=== PATIENT | male | born 2000 | race Caucasian/White ===

== ENCOUNTER → 2018-02-05 | Emergency (ER) | payer OTHER ==
[~2018-02-05] VITALS: Ht 185.4 cm; Wt 70.3 kg
[~2018-02-05] MED LIST: ACETAMINOPHEN 500 MG TAB (TYLENOL) PO ONE; AMOX-358 PO; AUGMENTIN 875 MG TAB (AMOXICILLIN/CLAVULANATE) PO SCH; IBUPROFEN 800 MG (MOTRIN) TAB PO ONE
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
[2018-02-06 00:18] VITALS: BP 123/76
== END | disposition home or self-care (01) ==
LOC: ER 22:16
DX: J02.9 Acute pharyngitis, unspecified (principal)
CPT/HCPCS: 87430; 87804

== ENCOUNTER 2018-07-17 17:59 | Emergency (ER) | payer OTHER ==
[~2018-07-17] VITALS: Ht 182.9 cm; Wt 70.3 kg
[~2018-07-17 17:59] MED LIST changes: -ACETAMINOPHEN 500 MG TAB (TYLENOL) PO ONE; -AUGMENTIN 875 MG TAB (AMOXICILLIN/CLAVULANATE) PO SCH; -IBUPROFEN 800 MG (MOTRIN) TAB PO ONE
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
[2018-07-17 18:30] VITALS: BP 120/66
== END 2018-07-17 18:38 | disposition home or self-care (01) ==
LOC: EDUNIT# 17:59 → ER 18:00
DX: S09.92XA Unspecified injury of nose, initial encounter (principal); S69.91XA Unspecified injury of right wrist, hand and finger(s), initial encounter; S69.92XA Unspecified injury of left wrist, hand and finger(s), initial encounter; R40.2142 Coma scale, eyes open, spontaneous, at arrival to emergency department; R40.2252 Coma scale, best verbal response, oriented, at arrival to emergency department; R40.2362 Coma scale, best motor response, obeys commands, at arrival to emergency department; Z77.22 Contact with and (suspected) exposure to environmental tobacco smoke (acute) (chronic); V49.40XA Driver injured in collision with unspecified motor vehicles in traffic accident, initial encounter
CPT/HCPCS: 99282

== ENCOUNTER 2021-05-08 00:57 | Emergency (ER) | payer OTHER ==
[~2021-05-08] VITALS: Ht 182.9 cm; Wt 90.7 kg
[2021-05-08 01:25] VITALS: BP 140/98
[2021-05-08] MEDS ORDERED: LACTATED RINGERS 1,000 ML IV ONE ×2 (02:15→03:00)
[2021-05-08] MEDS ORDERED: ONDANSETRON 4 MG/2 ML (SDV) Z0FRAN IVP ONE (02:15)
[2021-05-08] MEDS ORDERED: FAMOTIDINE 20MG/2ML IV (PEPCID) IVP ONE (02:15)
[2021-05-08 02:22] LABS: BASOPHILS # (AUTO) 0.1 10^3/uL (0.0-0.1); BASOPHILS % (AUTO) 0 % (0-10); EOSINOPHILS # (AUTO) 0.1 10^3/uL (0.0-0.3); EOSINOPHILS % (AUTO) 1 % (0-10); HEMATOCRIT 50 % (40-54); HEMOGLOBIN 16.8 g/dL (13.3-17.7); LYMPHOCYTES # (AUTO) 0.9 10^3/uL (1.0-4.0); LYMPHOCYTES % (AUTO) 5 % (12-44); MEAN CORPUSCULAR HEMOGLOBIN 28 pg (25-34); MEAN CORPUSCULAR HGB CONC 34 g/dL (32-36); MEAN CORPUSCULAR VOLUME 84 fL (80-99); MEAN PLATELET VOLUME 10.6 fL (9.0-12.2); MONOCYTES % (AUTO) 6 % (0-12); NEUTROPHILS # (AUTO) 15.9 10^3/uL (1.8-7.8); NEUTROPHILS % (AUTO) 89 % (42-75); PLATELET COUNT 292 10^3/uL (130-400); WHITE BLOOD COUNT 17.9 10^3/uL (4.3-11.0)
[2021-05-08 02:32] LABS: BILIRUBIN,URINE NEGATIVE (NEGATIVE); CLARITY,URINE CLEAR; COLOR,URINE YELLOW; GLUCOSE, URINE (UA) NEGATIVE (NEGATIVE); KETONES,URINE NEGATIVE (NEGATIVE); LEUKOCYTE ESTERASE ,URINE NEGATIVE (NEGATIVE); NITRITE,URINE NEGATIVE (NEGATIVE); PROTEIN,URINE NEGATIVE (NEGATIVE)
[2021-05-08 02:34] LABS: ALBUMIN 4.6 GM/DL (3.2-4.5); CHLORIDE 103 MMOL/L (98-107); POTASSIUM 4.1 MMOL/L (3.6-5.0); SODIUM 140 MMOL/L (135-145)
[2021-05-08 02:35] LABS: CALCIUM 9.6 MG/DL (8.5-10.1)
[2021-05-08 02:36] LABS: GLUCOSE 131 MG/DL (70-105)
[2021-05-08 02:37] LABS: TOTAL PROTEIN 8.3 GM/DL (6.4-8.2)
[2021-05-08 02:38] LABS: BILIRUBIN,TOTAL 1.1 MG/DL (0.1-1.0); CARBON DIOXIDE 23 MMOL/L (21-32)
[2021-05-08 02:40] LABS: ALKALINE PHOSPHATASE 103 U/L (40-136); CREATININE SERUM 0.99 MG/DL (0.60-1.30); GFR ESTIMATED 110
[2021-05-08 02:41] LABS: BUN/CREATININE RATIO 12
[2021-05-08 02:43] LABS: ALANINE AMINOTRANSFERASE 31 U/L (0-55); LIPASE 11 U/L (8-78)
[2021-05-08 02:54] LABS: BACTERIA,URINE NEGATIVE /HPF; SQUAMOUS EPITHELIAL CELL,UR 0-2 /HPF
[2021-05-08] MEDS ORDERED: ONDA4TAB11 SL (03:03)
--- NOTE | 2021-05-08 03:03 | ED General ---
General Chief Complaint: Abdominal/GI Problems Stated Complaint: ABD PAIN,VOMITING,FEVER,COUGH Nursing Triage Note: Pt arrives via POV from home for c/o vomiting; onset one day. 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 Pt states when he has the vomiting episodes he has centralized ABD pain. Pt denies changes in bowel or bladder. Source of Information: Patient Exam Limitations: No Limitations History of Present Illness Date Seen by Provider: May 08, 2021 Time Seen by Provider: 01:07 Allergies and Home Medications Allergies Coded Allergies: No Known Drug Allergies (Unverified , 02/05/18) Patient Home Medication List Amoxicillin/Potassium Clav (Augmentin 875-125 Tablet) 1 Each Tablet, 1 EACH PO BID Prescribed by: KENN HOBBS on 02/05/18 [id number] Past Yqvddze-Hcgxir-Zhyujs Hx Patient Social History Tobacco Use?: No Use of E-Cig and/or Vaping dev: No Substance use?: No Alcohol Use?: No Pt feels they are or have been: No Immunizations Up To Date Tetanus Booster (TDap): Less than 5yrs PED Vaccines UTD: Yes Influenza Vaccine Up-to-Date: No; Not Current COVID19 Vaccine Internist Medical Doctor Md: Moderna Past Medical History Surgeries: No Respiratory: No Cardiac: No Neurological: No Reproductive Disorders: No Genitourinary: No Gastrointestinal: No Musculoskeletal: No Endocrine: No HEENT: No Cancer: No Psychosocial: No Integumentary: No Blood Disorders: No Physical Exam Vital Signs Vital Signs - First Documented 05/08/21 01:25 Temp 37.7 Pulse 129 Resp 18 B/P (MAP) 140/98 (112) Pulse Ox 98 O2 Delivery Room Air Capillary Refill : Less Than 3 Seconds Height, Weight, BMI Height: 6'0" Weight: 155lbs. oz. 70.034259dz; 27.00 BMI Method:Actual Progress/Results/Core Measures Suspected Sepsis SIRS Temperature: Pulse: 129 Respiratory Rate: 18 Laboratory Tests 05/08/21 02:15: White Blood Count 17.9H Blood Pressure 140 /98 Mean: 112 Laboratory Tests 05/08/21 02:15: Creatinine 0.99, Platelet Count 292, Total Bilirubin 1.1H Results/Orders Lab Results Laboratory Tests Test 05/08/21 01:30 05/08/21 02:15 Range/Units Urine Color YELLOW Urine Clarity CLEAR Urine pH 6.0 5-9 Urine Specific [place] 1.025 H 1.016-1.022 Urine Protein NEGATIVE NEGATIVE Urine Glucose (UA) NEGATIVE NEGATIVE Urine Ketones NEGATIVE NEGATIVE Urine Nitrite NEGATIVE NEGATIVE Urine Bilirubin NEGATIVE NEGATIVE Urine Urobilinogen 0.2 < = 1.0 MG/DL Urine Leukocyte Esterase NEGATIVE NEGATIVE Urine RBC (Auto) NEGATIVE NEGATIVE Urine RBC NONE /HPF Urine WBC NONE /HPF Urine Squamous Epithelial Cells 0-2 /HPF Urine Crystals NONE /LPF Urine Bacteria NEGATIVE /HPF Urine Casts NONE /LPF Urine Mucus SMALL H /LPF Urine Culture Indicated NO Influenza Type A (RT-PCR) Not Detected Not Detecte Influenza Type B (RT-PCR) Not Detected Not Detecte SARS-CoV-2 RNA (RT-PCR) Not Detected Not Detecte White Blood Count 17.9 H 4.3-11.0 10^3/uL Red Blood Count 5.97 H 4.30-5.52 10^6/uL Hemoglobin 16.8 13.3-17.7 g/dL Hematocrit 50 40-54 % Mean Corpuscular Volume 84 80-99 fL Mean Corpuscular Hemoglobin 28 25-34 pg Mean Corpuscular Hemoglobin Concent 34 32-36 g/dL Red Cell Distribution Width 12.8 10.0-14.5 % Platelet Count 292 130-400 10^3/uL Mean Platelet Volume 10.6 9.0-12.2 fL Immature Granulocyte % (Auto) 0 % Neutrophils (%) (Auto) 89 H 42-75 % Lymphocytes (%) (Auto) 5 L 12-44 % Monocytes (%) (Auto) 6 0-12 % Eosinophils (%) (Auto) 1 0-10 % Basophils (%) (Auto) 0 0-10 % Neutrophils # (Auto) 15.9 H 1.8-7.8 10^3/uL Lymphocytes # (Auto) 0.9 L 1.0-4.0 10^3/uL Monocytes # (Auto) 1.0 0.0-1.0 10^3/uL Eosinophils # (Auto) 0.1 0.0-0.3 10^3/uL Basophils # (Auto) 0.1 0.0-0.1 10^3/uL Immature Granulocyte # (Auto) 0.1 0.0-0.1 10^3/uL Sodium Level 140 135-145 MMOL/L Potassium Level 4.1 3.6-5.0 MMOL/L Chloride Level 103 98-107 MMOL/L Carbon Dioxide Level 23 21-32 MMOL/L Anion Gap 14 5-14 MMOL/L Blood Urea Nitrogen 12 7-18 MG/DL Creatinine 0.99 0.60-1.30 MG/DL Estimat Glomerular Filtration Rate 110 BUN/Creatinine Ratio 12 Glucose Level 131 H 70-105 MG/DL Calcium Level 9.6 8.5-10.1 MG/DL Corrected Calcium 8.5-10.1 MG/DL Total Bilirubin 1.1 H 0.1-1.0 MG/DL Aspartate Amino Transf (AST/SGOT) 21 5-34 U/L Alanine Aminotransferase (ALT/SGPT) 31 0-55 U/L Alkaline Phosphatase 103 40-136 U/L Total Protein 8.3 H 6.4-8.2 GM/DL Albumin 4.6 H 3.2-4.5 GM/DL Lipase 11 8-78 U/L My Orders Orders - DIANNE GARRISON MD Covid 19 Inhouse Test (05/08/21 01:07) Influenza A And B By Pcr (05/08/21 01:07) Cbc With Automated Diff (05/08/21 02:05) Comprehensive Metabolic Panel (05/08/21 02:05) Lipase (05/08/21 02:05) Ed Iv/Invasive Line Start (05/08/21 02:05) Lactated Ringers (Lr 1000 Ml Iv Solution (05/08/21 02:15) Ondansetron Injection (Zofran Injectio (05/08/21 02:15) Famotidine Injection (Pepcid Injection) (05/08/21 02:15) Manual Differential (05/08/21 02:15) Ua Culture If Indicated (05/08/21 02:27) Hs C Reactive Protein (05/08/21 02:55) Lr 1000ml Iv (05/08/21 03:00) Medications Given in ED Current Medications Medications Dose Ordered Sig/Itz Route Start Time Stop Time Status Last Admin Dose Admin Famotidine 20 mg ONCE ONCE IVP 05/08/21 02:15 05/08/21 02:16 DC 05/08/21 02:25 20 MG Lactated Ringer's 1,000 ml @ 0 mls/hr Q0M ONCE IV 05/08/21 02:15 05/08/21 02:16 DC 05/08/21 02:25 1,000 MLS/HR Ondansetron HCl 8 mg ONCE ONCE IVP 05/08/21 02:15 05/08/21 02:16 DC 05/08/21 02:25 8 MG Vital Signs/I&O 05/08/21 01:25 Temp 37.7 Pulse 129 Resp 18 B/P (MAP) 140/98 (112) Pulse Ox 98 O2 Delivery Room Air Capillary Refill : Less Than 3 Seconds Blood Pressure Mean: 112 Departure Impression Primary Impression: Nausea and vomiting Qualified Codes: R11.2 - Nausea with vomiting, unspecified Additional Impression: Epigastric pain Disposition: HOME, SELF-CARE Condition: Improved Departure-Patient Inst. Decision time for Depature: 03:00 Referrals: [facility] (PCP/Family) Primary Care Physician Patient Instructions: Nausea and Vomiting, Adult (DC) Add. Discharge Instructions: Start with a noncarbonated clear liquid diet. Continue with clear liquids for 12 to 24 hours. Then gradually advance your diet with small quantities of bland food as tolerated. You may use Zofran (ondansetron) as prescribed for nausea and vomiting. You may use an antacid medication such as omeprazole or Pepcid (famotidine) [id number] to help with stomach upset and discomfort. You may also use Tylenol (acetaminophen) up to 1000 mg every 6 hours as needed for discomfort. Call with questions or concerns. Return to the ER if you have worsening symptoms. All discharge instructions reviewed with patient and/or family. Voiced understanding. Scripts Ondansetron (Ondansetron Odt) 4 Mg Tab.rapdis 4 MG SL Q4H PRN for NAUSEA/VOMITING, #10 TAB Prov: DIANNE GARRISON MD 05/08/21 Work/School Note: Work Release Form Date Seen in the Emergency Department: May 08, 2021 Return to Work: May 09, 2021 Restrictions: Return-No Fever (24hrs), Return-No Vomiting(24hrs) DIANNE GARRISON MD May 08, 2021 03:03
[2021-05-08 03:07] LABS: BAND NEUTROPHILS 3 %; EOSINOPHILS % (MANUAL) 2 %; LYMPHOCYTES % (MANUAL) 10 %; MONOCYTES % (MANUAL) 9 %; NEUTROPHILS % (MANUAL) 76 %; RBC MORPH NORMAL
== END 2021-05-08 03:58 | disposition home or self-care (01) ==
LOC: EDUNIT# 00:57 → ER 01:00
DX: R11.2 Nausea with vomiting, unspecified (principal); R10.13 Epigastric pain; Z20.822 Contact with and (suspected) exposure to COVID-19
CPT/HCPCS: 36415; 80053; 81000; 83690; 85007; 85027; 86141; 87636